=== PATIENT | female | born 1960 | race Caucasian/White ===

== ENCOUNTER 2017-07-01 09:01 | Emergency (ER) | payer OTHER ==
[~2017-07-01] VITALS: Ht 167.6 cm; Wt 79.5 kg
[2017-07-01 09:08] VITALS: TEMP 36.6; Ht 167.6 cm; Wt 79.5 kg
[2017-07-01] MEDS ORDERED: SYN75 PO (09:25)
[2017-07-01] MEDS ORDERED: SERT-234 PO (09:25)
[2017-07-01] MEDS ORDERED: LORAZEPAM 2 MG/ML 1 ML VIAL IV STA (10:09)
--- NOTE | 2017-07-01 10:22 | EMERGENCY ROOM VISIT NOTE ---
History First contact with patient: 09:13 Chief Complaint: ANXIETY Stated Complaint: ANXIETY History of Present Illness The patient is a 57 year old female with previous psychiatric history presents to the Emergency Room with complaints of panic attack/extreme worry x 1 week after signing some consents on computer. Pt believes her computer has been hacked and she is worried she could have signed her house, money and everyone else's house away too. According to , she had similar problems in the past in 2004 at which point she believed her doctor's gifts officer was communicating with her job and her who was a ad copy writer was tapping her phone. He is not sure of her diagnosis but was possibly diagnosed with bipolar and treated with Abilify for a few years after which she took herself off of it as she was doing well. She was also seen at the [facility] and admitted at [facility] for a week in 2004. Pt denies current SI/HI. However, reports suicidal attempt last when she tried to overdose on aspirin. Pt did not want to share that as she is afraid of being admitted. Otherwise asymptomatic. Review of Systems see below Constitutional: No fever Respiratory: + problem reported (rapid breathing ) Psychiatric: + anxiety Social History Smoking Status: Former Smoker Current/Historical Medications Scheduled Levothyroxine Sodium (Synthroid), 75 MCG PO DAILY Sertraline (Zoloft), 150 MG PO DAILY Physical Exam Vital Signs Date Time Temp Pulse Resp B/P (MAP) Pulse Ox O2 Delivery O2 Flow Rate FiO2 07/01/17 11:37 74 16 124/70 97 Room Air 07/01/17 09:08 36.6 67 18 131/79 94 Room Air Physical Exam see below Head: normocephalic, atraumatic Eyes: normal inspection ENT: normal ENT inspection Respiratory/Chest: lungs clear, normal breath sounds Cardiovascular: regular rate, rhythm, no murmur Medical Decision & Procedures Laboratory Results 07/01/17 10:25 Red Blood Count 4.48, Mean Corpuscular Volume 85.9, Mean Corpuscular Hemoglobin 29.5, Mean Corpuscular Hemoglobin Concent 34.3, Mean Platelet Volume 9.2, Neutrophils (%) (Auto) 58.4, Lymphocytes (%) (Auto) 33.3, Monocytes (%) (Auto) 7.7, Eosinophils (%) (Auto) 0.4, Basophils (%) (Auto) 0.1, Neutrophils # (Auto) 4.31, Lymphocytes # (Auto) 2.46, Monocytes # (Auto) 0.57, Eosinophils # (Auto) 0.03, Basophils # (Auto) 0.01 07/01/17 10:25 Test 07/01/17 09:20 07/01/17 10:25 Urine Color YELLOW Urine Appearance CLEAR (CLEAR) Urine pH 8.5 (4.5-7.5) Urine Specific [place] 1.006 (1.000-1.030) Urine Protein NEG (NEG) Urine Glucose (UA) NEG (NEG) Urine Ketones NEG (NEG) Urine Occult Blood NEG (NEG) Urine Nitrite NEG (NEG) Urine Bilirubin NEG (NEG) Urine Urobilinogen NEG (NEG) Urine Leukocyte Esterase NEG (NEG) Urine Opiates Screen NEG (NEG) Urine Methadone, Qualitative NEG (NEG) Urine Barbiturates NEG (NEG) Urine Phencyclidine (PCP) Level NEG (NEG) Ur Amphetamine/Methamphetamine NEG (NEG) MDMA (Ecstasy) Screen NEG (NEG) Urine Benzodiazepines Screen NEG (NEG) Urine Cocaine Metabolite NEG (NEG) Urine Marijuana (THC) NEG (NEG) White Blood Count 7.39 K/uL (4.8-10.8) Red Blood Count 4.48 M/uL (4.2-5.4) Hemoglobin 13.2 g/dL (12.0-16.0) Hematocrit 38.5 % (37-47) Mean Corpuscular Volume 85.9 fL (80-100) Mean Corpuscular Hemoglobin 29.5 pg (25-34) Mean Corpuscular Hemoglobin Concent 34.3 g/dl (32-36) Platelet Count 309 K/uL (130-400) Mean Platelet Volume 9.2 fL (7.4-10.4) Neutrophils (%) (Auto) 58.4 % Lymphocytes (%) (Auto) 33.3 % Monocytes (%) (Auto) 7.7 % Eosinophils (%) (Auto) 0.4 % Basophils (%) (Auto) 0.1 % Neutrophils # (Auto) 4.31 K/uL (1.4-6.5) Lymphocytes # (Auto) 2.46 K/uL (1.2-3.4) Monocytes # (Auto) 0.57 K/uL (0.11-0.59) Eosinophils # (Auto) 0.03 K/uL (0-0.5) Basophils # (Auto) 0.01 K/uL (0-0.2) RDW Standard Deviation 46.9 fL (36.4-46.3) RDW Coefficient of Variation 15.0 % (11.5-14.5) Immature Granulocyte % (Auto) 0.1 % Immature Granulocyte # (Auto) 0.01 K/uL (0.00-0.02) Anion Gap 6.0 mmol/L (3-11) Est Creatinine Clear Calc Drug Dose 82.5 ml/min Estimated GFR () 95.6 Estimated GFR (Non- 82.5 BUN/Creatinine Ratio 15.2 (10-20) Calcium Level 8.8 mg/dl (8.5-10.1) Total Bilirubin 0.8 mg/dl (0.2-1) Direct Bilirubin 0.2 mg/dl (0-0.2) Aspartate Amino Transf (AST/SGOT) 39 U/L (15-37) Alanine Aminotransferase (ALT/SGPT) 43 U/L (12-78) Alkaline Phosphatase 71 U/L (45-117) Total Protein 7.3 gm/dl (6.4-8.2) Albumin 3.9 gm/dl (3.4-5.0) Thyroid Stimulating Hormone (TSH) 3.510 uIu/ml (0.300-4.500) Salicylates Level < 1.7 mg/dl (2.8-20) Acetaminophen Level < 2 ug/ml (10-30) Ethyl Alcohol mg/dL < 3.0 mg/dl (0-3) Medications Administered Medications (Trade) Dose Ordered Sig/Mai Route Start Time Stop Time Status Last Admin Dose Admin Lorazepam (Ativan Tab) 1 mg STK-MED ONCE .ROUTE 07/01/17 10:53 07/01/17 10:54 DC 07/01/17 10:56 1 MG Medical Decision 57y/oF with hx of previous psychiatric admission for similar symptoms and possibly bipolar disorder? presents with extreme anxiety/worry after signing some consents on her computer. Pt is currently delusional and believes someone is hacking her computer and out to get her money, house etc by getting her to sign consents on her computer. Pt's symptoms concerning for panic attack likely in the setting of baseline schizophrenia/psychosis. No active SI/HI however, pt attempted suicide 6 days ago by trying to overdose on aspirin. -Ordered CBC w/t diff, BMP, LFT, TSH -Ordered UA -Ordered Urine drug profile, etoh level, acetaminophen, salicylate levels -Given Ativan 1mg IV once at 10:09 -Pt cleared for psychiatric admission at 11:[address] Albright -Pt awaiting transfer to [place] Medication Reconcilliation Current Medication List: was personally reviewed by me Blood Pressure Screening Patient's blood pressure: Normal blood pressure Impression Primary Impression: Panic attack Additional Impression: Delusional disorder Departure Information Dispostion Mental Health Acute Care Condition GOOD Referrals Cruz Angulo D.O. (PCP) Patient Instructions My [facility] Problem Qualifiers
[2017-07-01 10:36] LABS: BASO % 0.1 %; BASO ABS # 0.01 K/uL (0-0.2); EOS % 0.4 %; EOS ABS # 0.03 K/uL (0-0.5); HEMATOCRIT 38.5 % (37-47); HEMOGLOBIN 13.2 g/dL (12.0-16.0); IG# 0.01 K/uL (0.00-0.02); LYMPH % 33.3 %; LYMPH ABS # 2.46 K/uL (1.2-3.4); MEAN CELL VOLUME 85.9 fL (80-100); MEAN CORPUSCULAR HEMOGLOBIN 29.5 pg (25-34); MEAN CORPUSCULAR HGB CONC 34.3 g/dl (32-36); MEAN PLATELET VOLUME 9.2 fL (7.4-10.4); MONO % 7.7 %; MONO ABS # 0.57 K/uL (0.11-0.59); NEUT % 58.4 %; NEUT ABS # 4.31 K/uL (1.4-6.5); PLATELET COUNT 309 K/uL (130-400); RED CELL DISTRIBUTION WIDTH SD 46.9 fL (36.4-46.3); WHITE BLOOD COUNT 7.39 K/uL (4.8-10.8)
[2017-07-01] MEDS ORDERED: LORAZEPAM 1 MG TAB ONE (10:53)
[2017-07-01 11:24] LABS: CREATININE 0.79 mg/dl (0.60-1.20)
[2017-07-01 11:26] LABS: POTASSIUM 3.4 mmol/L (3.5-5.1)
[2017-07-01 11:27] LABS: ALBUMIN 3.9 gm/dl (3.4-5.0); CALCIUM 8.8 mg/dl (8.5-10.1); TOTAL PROTEIN 7.3 gm/dl (6.4-8.2)
[2017-07-01 15:56] VITALS: BP 133/76; PULSE 78; O2SAT 98
--- NOTE | 2017-07-02 08:23 | EMERGENCY ROOM VISIT NOTE ---
ED Visit Note First contact with patient: 09:13 Resident Physician Supervision Note: I interviewed and examined the patient. Discussed with Dr. Taylor and agree with findings and plan as documented in the note. Any exceptions or clarifications are listed here: This patient was evaluated and appeared to be anxious but in no distress. She was given Ativan 1 mg p.o. Patient was medically cleared. She does admit to previous medication overdose but would not state whether or not it was a suicide attempt. Her states that she did express these wishes to him several days ago when she took these medications. Patient seems to be somewhat delusional at this time regarding viruses in her computer. She was evaluated by mental health and admitted to [facility] on a voluntary 201. Secure transportation arrangements were made. Documented By: Lisa Albright
== END 2017-07-01 16:09 ==
LOC: C.EDB 09:02 → C.EDA 16:09
DX: F41.0 Panic disorder [episodic paroxysmal anxiety] (principal); F22 Delusional disorders; Z87.891 Personal history of nicotine dependence; Z79.899 Other long term (current) drug therapy